=== PATIENT | male | born 1965 | race Hispanic/Latino ===

== ENCOUNTER 2018-09-06 23:10 | Inpatient (IN) | payer MEDICARE ==
[~2018-09-06] VITALS: Ht 185.4 cm; Wt 70.6 kg
[~2018-09-06 23:10] MED LIST: CINA30 PO; INSU100I21 SQ; NIFE90TA38 PO; [UNRECOGNIZED DRUG - OTHER] PO
[2018-09-06 23:52] LABS: BASOPHILS % (AUTO) 0.7 % (0.0-5.0); HEMATOCRIT 26.5 % (42-54); LYMPHOCYTES % (AUTO) 19.9 % (21.0-51.0); MEAN CORPUSCULAR HGB CONC 33.9 g/dL (32.0-36.0); MEAN CORPUSCULAR VOLUME 97.1 fL (79-99); MONOCYTES % (AUTO) 7.8 % (3.0-13.0); NEUTROPHILS % (AUTO) 69.6 % (40.0-77.0); NUCLEATED RED BLOOD CELLS 0.1 % (0.0-0.19); PLATELET COUNT (AUTO) 99 K/uL (130-400); RED BLOOD CELL COUNT(AUTO) 2.73 MIL/uL (4.50-6.20); WHITE BLOOD COUNT (AUTO) 5.4 K/uL (4.8-10.8)
[2018-09-07 00:02] LABS: INR 1.11 (0.85-1.15); PARTIAL THROMBOPLASTIN TIME 29.2 SEC (26.3-35.5); PROTHROMBIN TIME 11.6 SEC (9.6-11.6)
[2018-09-07 00:06] LABS: ALBUMIN 3.1 g/dL (3.5-5.0); BILIRUBIN,TOTAL 0.6 mg/dL (0.2-1.0); POTASSIUM 4.7 mmol/L (3.5-5.1)
[2018-09-07 00:08] LABS: CREATININE 8.3 mg/dL (0.5-1.5)
[2018-09-07 01:20] VITALS: BP 178/75
[2018-09-07] MEDS ORDERED: ONDANSETRON HCL 4 MG/2 ML VIAL IV PRN (01:45)
[2018-09-07] MEDS ORDERED: LABETALOL 20 MG/4 ML DISP.SYRIN IV PRN (01:45)
[2018-09-07] MEDS ORDERED: DEXTROSE 50%-WATER 50 ML DISP.SYRIN IV PRN (02:00)
[2018-09-07] MEDS ORDERED: GLUCAGON 1MG KIT 1 MG ML IM PRN (02:00)
[2018-09-07] MEDS ORDERED: ENAL10TA PO (03:31)
[2018-09-07] MEDS ORDERED: METO25TA6 PO (03:31)
[2018-09-07] MEDS ORDERED: ASPI-1005 PO (03:31)
[2018-09-07 04:00] VITALS: BP 156/61
[2018-09-07 05:36] LABS: HEMATOCRIT 24.2 % (42-54); MEAN CORPUSCULAR HEMOGLOBIN 32.2 pg (27.0-33.0); MEAN CORPUSCULAR HGB CONC 33.4 g/dL (32.0-36.0); MEAN CORPUSCULAR VOLUME 96.4 fL (79-99); PLATELET COUNT (AUTO) 84 K/uL (130-400); RED BLOOD CELL COUNT(AUTO) 2.51 MIL/uL (4.50-6.20); WHITE BLOOD COUNT (AUTO) 4.9 K/uL (4.8-10.8)
[2018-09-07 05:39] LABS: HEMOGLOBIN A1C 5.8 % (4.0-6.0)
[2018-09-07] MEDS: INSULIN HUMULIN R 100 UNIT/ML 3ML SQ SCH ×4 (05:43→21:00)
[2018-09-07 05:46] LABS: ALBUMIN 2.8 g/dL (3.5-5.0); BILIRUBIN,TOTAL 0.6 mg/dL (0.2-1.0); POTASSIUM 4.9 mmol/L (3.5-5.1); TOTAL PROTEIN, SERUM 7.3 g/dL (6.0-8.3)
[2018-09-07 05:48] LABS: CREATININE 8.6 mg/dL (0.5-1.5)
[2018-09-07] MEDS: SEVELAMER HCL 800 MG TABLET PO SCH ×3 (07:40→15:59)
[2018-09-07 07:52] VITALS: BP 169/76
[2018-09-07] MEDS ORDERED: ASPIRIN 81MG TAB.CHEW PO SCH (09:00)
[2018-09-07] MEDS: ENALAPRIL MALEATE 10 MG TABLET PO SCH ×2 (09:00→20:17)
[2018-09-07] MEDS: NIFEDIPINE ER 30 MG TAB PO SCH ×2 (09:00→20:17)
[2018-09-07] MEDS ORDERED: CINACALCET HCL 30 MG TAB PO SCH (09:00)
[2018-09-07] MEDS ORDERED: METOPROLOL TARTRATE 25 MG TAB PO SCH (09:00)
[2018-09-07] MEDS ORDERED: PANTOPRAZOLE SODIUM 40 MG TABLET.DR PO SCH (09:00)
[2018-09-07] MEDS: ACETAMINOPHEN 325 MG TAB PO PRN (09:40)
[2018-09-07] MEDS ORDERED: MORPHINE SULFATE 2 MG/ML 1ML SYG IM PRN (10:00)
[2018-09-07] MEDS: MORPHINE SULFATE 2 MG/ML 1ML SYG IVP PRN ×2 (10:28→21:22)
[2018-09-07 11:45] VITALS: BP 139/65
[2018-09-07] MEDS ORDERED: NALOXONE HCL 0.4 MG/1 ML ML IVP ONE (12:00)
[2018-09-07] MEDS ORDERED: ATROPINE SULFATE 0.1 MG/ML 10 ML SYG IVP ONE (12:00)
[2018-09-07] MEDS ORDERED: NOREPINEPHRINE BITARTRATE 1 MG/1 ML ML IV ONE (12:00)
[2018-09-07] MEDS ORDERED: EPINEPHRINE 0.1 MG/ML 10 ML SYG IVP ONE (12:00)
[2018-09-07] MEDS ORDERED: HALOPERIDOL LACTATE 5 MG/ML VIAL ONE (13:12)
[2018-09-07] MEDS ORDERED: HALOPERIDOL DECANOATE 100 MG/ML ML IM PRN (13:15)
[2018-09-07] MEDS ORDERED: HALOPERIDOL LACTATE 5 MG/ML VIAL IM PRN (13:23)
[2018-09-07] MEDS: LORAZEPAM 2 MG/ML 1 ML VIAL IVP PRN ×2 (15:51→23:38)
[2018-09-07 18:30] VITALS: BP 165/74
[2018-09-08] VITALS (19 sets, daily range): BP systolic 97–159; BP diastolic 48–72
[2018-09-08] MEDS: MORPHINE SULFATE 2 MG/ML 1ML SYG IVP PRN (01:24)
[2018-09-08 04:03] LABS: HEMATOCRIT 22.7 % (42-54); MEAN CORPUSCULAR HGB CONC 34.2 g/dL (32.0-36.0); MEAN CORPUSCULAR VOLUME 96.6 fL (79-99); NUCLEATED RED BLOOD CELLS 0.1 % (0.0-0.19); PLATELET COUNT (AUTO) 93 K/uL (130-400); RED BLOOD CELL COUNT(AUTO) 2.35 MIL/uL (4.50-6.20); WHITE BLOOD COUNT (AUTO) 5.2 K/uL (4.8-10.8)
[2018-09-08 04:17] LABS: ALBUMIN 2.9 g/dL (3.5-5.0); BILIRUBIN,TOTAL 1.1 mg/dL (0.2-1.0); POTASSIUM 5.4 mmol/L (3.5-5.1); TOTAL PROTEIN, SERUM 7.6 g/dL (6.0-8.3)
[2018-09-08 04:21] LABS: CREATININE 8.4 mg/dL (0.5-1.5)
[2018-09-08 04:29] LABS: INR 1.32 (0.85-1.15); PARTIAL THROMBOPLASTIN TIME 30.3 SEC (26.3-35.5); PROTHROMBIN TIME 13.8 SEC (9.6-11.6)
[2018-09-08] MEDS: ACETAMINOPHEN 325 MG TAB PO PRN (05:18)
[2018-09-08] MEDS: INSULIN HUMULIN R 100 UNIT/ML 3ML SQ SCH (06:42)
[2018-09-08] MEDS ORDERED: PHARMACY COMMUNICATION MISC SCH (07:45)
[2018-09-08] MEDS ORDERED: VANCOMYCIN PROTOCOL PER PHARMACY IV SCH (08:30)
[2018-09-08] MEDS ORDERED: VANCOMYCIN 1GM+NS 250ML 250 ML IV ONE (08:30)
[2018-09-08 10:00] LABS: % IRON SATURATION 23.9 % (30-44)
[2018-09-08] MEDS ORDERED: SODIUM CHLORIDE 0.9% IJ ONE (10:00)
[2018-09-08] MEDS ORDERED: DESMOPRESSIN ACETATE IJ ONE (10:00)
[2018-09-08] MEDS ORDERED: CEFTRIAXONE SODIUM 1 GM IVP SCH (11:00)
[2018-09-08] MEDS ORDERED: ZOSYN 3.375GM+NS 50ML 50 ML IV ONE (11:00)
[2018-09-08] MEDS ORDERED: NALOXONE HCL 0.4 MG/1 ML ML ONE (11:19)
[2018-09-09] MEDS ORDERED: VANCOMYCIN 1.25 GM in SODIUM CHLORIDE 0.9% 250 ML IV SCH (16:00)
== END 2018-09-08 11:32 | disposition expired | DRG 314 ==
LOC: EDH 23:10 → EDHIP 09-07 00:20 → 3BH 09-07 00:37 → 2CH 09-08 04:11
PROVIDERS: ADMIT Internal Medicine; ATTEND Internal Medicine
PROC: 5A12012 Performance of Cardiac Output, Single, Manual (ICD-10-PCS; principal; 2018-09-07)
PROC: 5A1D70Z Performance of Urinary Filtration, Intermittent, Less than 6 Hours Per Day (ICD-10-PCS; 2018-09-07)
DX: T82.838A Hemorrhage due to vascular prosthetic devices, implants and grafts, initial encounter (principal); N18.6 End stage renal disease; I12.0 Hypertensive chronic kidney disease with stage 5 chronic kidney disease or end stage renal disease; G93.40 Encephalopathy, unspecified; E44.1 Mild protein-calorie malnutrition; E11.22 Type 2 diabetes mellitus with diabetic chronic kidney disease; D69.6 Thrombocytopenia, unspecified; D63.1 Anemia in chronic kidney disease; E11.21 Type 2 diabetes mellitus with diabetic nephropathy; E11.51 Type 2 diabetes mellitus with diabetic peripheral angiopathy without gangrene; E78.5 Hyperlipidemia, unspecified; Y84.1 Kidney dialysis as the cause of abnormal reaction of the patient, or of later complication, without mention of misadventure at the time of the procedure; Y92.89 Other specified places as the place of occurrence of the external cause; Z68.20 Body mass index [BMI] 20.0-20.9, adult; Z99.2 Dependence on renal dialysis; Z88.0 Allergy status to penicillin; Z88.8 Allergy status to other drugs, medicaments and biological substances; Z89.512 Acquired absence of left leg below knee; Z89.511 Acquired absence of right leg below knee; Z83.3 Family history of diabetes mellitus; Z82.5 Family history of asthma and other chronic lower respiratory diseases; Z82.3 Family history of stroke; Z82.0 Family history of epilepsy and other diseases of the nervous system; Z82.49 Family history of ischemic heart disease and other diseases of the circulatory system
CPT/HCPCS: 31500; 36415; 70551; 71045; 80053; 80339; 82140; 82948; 83036; 83540; 83550; 85025; 85027; 85610; 85730; 86850; 86900; 86901; 87040; 87077; 87186; 90935; 92950; 93005; 94770; J0171; J0461; J1630; J2060; J2310; J2597; J3490